=== PATIENT | male | born 1975 | race Hispanic/Latino ===

== ENCOUNTER → 2022-05-30 | Outpatient (CLI) | payer BC, SELFPAY ==
--- NOTE | 2022-05-30 13:45 | RAD_ITS ---
HISTORY: low back pain. TECHNIQUE: XR Spine Lumbar 2 or 3 Views. COMPARISON: None. FINDINGS: VERTEBRAE: Transitional lumbosacral anatomy with a rudimentary disc designated at S1-2. Vertebral body heights maintained. L5 spondylolysis. ALIGNMENT: 7 mm anterolisthesis of L5-S1. INTERVERTEBRAL DISCS: Degenerative endplate changes with mild intervertebral disc space narrowing of L1-2 and L5-S1. RAD/Lumbar Spine 2 or 3 Views IMPRESSION: No acute fracture or dislocation identified in the lumbar spine. L5 spondylolysis with grade 1 spondylolisthesis. Degenerative changes. Electronically Signed: Jamila Tran MD at 14:00 EDT ,
== END | disposition home or self-care (01) ==
PROVIDERS: PCP Nurse Practitioner Family; Referring Provider Nurse Practitioner Family; Visit Provider Nurse Practitioner Family
DX: M54.50 Low back pain, unspecified (principal); G89.29 Other chronic pain; M62.838 Other muscle spasm
CPT/HCPCS: 72100